=== PATIENT | female | born 1990 | race Caucasian/White ===

== ENCOUNTER 2017-06-29 20:38 | Emergency (ER) | payer MEDICAID ==
[~2017-06-29] VITALS: Ht 165.1 cm; Wt 87.5 kg
[2017-06-29 20:41] VITALS: BP_SYST 128
--- NOTE | 2017-06-29 21:45 | NUR ---
Patient to ER bed 6 to gown for evaluation. Side rails up. Report given to ZACHARY OBRIEN.
--- NOTE | 2017-06-29 21:50 | NUR ---
Patient arrived to ED a/o x 4 with c/o 8/10 epigastric pain x 1 day. Patient states that pain increases when she eats. Mild inspiratory wheezes noted. Skin warm and dry. Denies N/V/D. Will continue to monitor.
--- NOTE | 2017-06-29 21:59 | NUR ---
ER at bedside examining patient.
[2017-06-29] MEDS ORDERED: IPRATROPIUM/ALBUTEROL SULFATE 3 ML AMPUL.NEB INH ONE (22:30)
[2017-06-29] MEDS ORDERED: methylPREDNISolone SOD SUCC/PF 62.5 MG/ML VIAL IM ONE (22:30)
[2017-06-29 23:00] VITALS: BP_SYST 125
--- NOTE | 2017-06-29 23:00 | NUR ---
Patient given written and verbal discharge instructions and verbalizes understanding. ER MD discussed with patient the results and treatment provided. Patient in stable condition. ID arm band removed. Rx of Prednisone and Atrovent given. Patient educated on pain management and to follow up with PMD. Pain Scale 2/10 tolerable for patient. Opportunity for questions provided and answered. Medication side effect fact sheet provided.
== END 2017-06-29 23:00 | disposition home or self-care (01) ==
LOC: SED 20:38
DX: J45.901 Unspecified asthma with (acute) exacerbation (principal)
CPT/HCPCS: 93005; 94640; 96372; 99283; J2930

== ENCOUNTER 2017-07-06 08:53 | Emergency (ER) | payer MEDICAID ==
[~2017-07-06] VITALS: Ht 165.1 cm; Wt 87.5 kg
[2017-07-06 09:45] VITALS: BP_SYST 120
--- NOTE | 2017-07-06 10:27 | NUR ---
Ambulatory to bed 4
--- NOTE | 2017-07-06 10:58 | NUR ---
Dr. Huber at bedside for evaluation
[2017-07-06] MEDS ORDERED: IPRATROPIUM/ALBUTEROL SULFATE 3 ML AMPUL.NEB INH ONE (11:15)
[2017-07-06 11:20] VITALS: BP_SYST 128
--- NOTE | 2017-07-06 11:20 | NUR ---
Patient given written and verbal discharge instructions and verbalizes understanding. ER MD discussed with patient the results and treatment provided. Patient in stable condition. ID arm band removed. Rx of Amoxicillin and Motrin given. Patient educated on pain management and to follow up with PMD. Pain Scale 3/10. Opportunity for questions provided and answered. Medication side effect fact sheet provided.
== END 2017-07-06 11:20 | disposition home or self-care (01) ==
LOC: SED 08:53
DX: H66.92 Otitis media, unspecified, left ear (principal); J45.909 Unspecified asthma, uncomplicated
CPT/HCPCS: 99283

== ENCOUNTER 2019-04-11 08:13 | Emergency (ER) | payer MEDICAID ==
[2019-04-11] MEDS ORDERED: methylPREDNISolone SOD SUCC/PF 62.5 MG/ML VIAL ONE (09:08)
== END 2019-04-11 10:17 | disposition home or self-care (01) ==
LOC: SED 08:13
DX: J45.901 Unspecified asthma with (acute) exacerbation (principal)
CPT/HCPCS: 94640; 96372; 99284; J2930

== ENCOUNTER 2019-04-15 22:38 | Emergency (ER) | payer MEDICAID ==
[~2019-04-15] VITALS: Ht 165.1 cm; Wt 88.5 kg
[2019-04-15 22:46] VITALS: BP_SYST 131
--- NOTE | 2019-04-15 23:03 | NUR ---
Patient left without being seen. No further treatment provided. ER MD aware
--- NOTE | 2019-04-15 23:03 | NUR ---
Called in x 3, no answer
== END 2019-04-15 23:03 | disposition left against medical advice (07) ==
LOC: SED 22:38
DX: R06.02 Shortness of breath (principal); Z53.21 Procedure and treatment not carried out due to patient leaving prior to being seen by health care provider
CPT/HCPCS: 36415; 86710

== ENCOUNTER 2019-05-23 08:22 | Emergency (ER) | payer MEDICAID ==
[~2019-05-23] VITALS: Ht 165.1 cm; Wt 86.2 kg
[2019-05-23 08:22] VITALS: BP_SYST 121
[2019-05-23] MEDS ORDERED: methylPREDNISolone SOD SUCC/PF 62.5 MG/ML VIAL IM ONE (09:45)
[2019-05-23] MEDS ORDERED: IPRATROPIUM/ALBUTEROL SULFATE 3 ML AMPUL.NEB (DUONEB) INH ONE (09:45)
[2019-05-23 10:17] VITALS: BP_SYST 127
== END 2019-05-23 10:16 | disposition home or self-care (01) ==
LOC: SED 08:22
DX: J45.901 Unspecified asthma with (acute) exacerbation (principal); J10.1 Influenza due to other identified influenza virus with other respiratory manifestations
CPT/HCPCS: 86710; 94640; 96372; 99283; J2930; J7620; 36415

== ENCOUNTER 2020-05-11 00:08 | Emergency (ER) | payer MEDICAID, SELFPAY ==
[~2020-05-11] VITALS: Ht 165.1 cm; Wt 86.2 kg
[2020-05-11 00:15] VITALS: BP_SYST 146
--- NOTE | 2020-05-11 00:15 | NUR ---
Patient triaged in the tent and placed in the covid tent. VSS and patient appears in no acute distress at this time. awaiting available bed, and MD notified of need for MSE.
--- NOTE | 2020-05-11 01:01 | NUR ---
MATTHEW Hinds examining patient.
[2020-05-11] MEDS: IPRATROPIUM BROM 0.5 MG/2.5 ML VIAL.NEB (ATROVENT) INH ONE (02:25)
[2020-05-11] MEDS: LevALBUTEROL HCL 1.25 MG/0.5 ML *CONC.* VIAL.NEB (XOPENEX CONC.) INH ONE (02:26)
--- NOTE | 2020-05-11 02:26 | NUR ---
Patient given written and verbal discharge instructions and verbalizes understanding. ER MD discussed with patient the results and treatment provided. Patient in stable condition. ID arm band removed. Rx of Flovent HFA given. Patient educated on pain management and to follow up with PMD. Pain Scale 0/10. Opportunity for questions provided and answered. Medication side effect fact sheet provided.
[2020-05-11 02:29] VITALS: BP_SYST 139
== END 2020-05-11 02:26 | disposition home or self-care (01) ==
LOC: SED 00:08
DX: U07.1 COVID-19 (principal); R06.02 Shortness of breath; J45.909 Unspecified asthma, uncomplicated
CPT/HCPCS: 71045; 94640; 99283; J7612

== ENCOUNTER 2020-05-13 17:49 | Emergency (ER) | payer MEDICAID, SELFPAY ==
[~2020-05-13] VITALS: Ht 165.1 cm; Wt 86.2 kg
--- NOTE | 2020-05-13 17:56 | NUR ---
Patient triaged and placed in waiting room. VSS and patient appears in no acute distress at this time. Accompanied by self , awaiting available bed, and MD notified of need for MSE.
[2020-05-13 18:00] VITALS: BP_SYST 129
--- NOTE | 2020-05-13 18:00 | NUR ---
Pt brought by self, A&Ox4, pt presents to ER with chest pressure/palpitations x 5 days, skin pink and warm, cap refill <3, respirations even and unlabored, will cont to monitor.
--- NOTE | 2020-05-13 18:10 | NUR ---
Dr Hazel evaluating patient in the tent
--- NOTE | 2020-05-13 18:24 | NUR ---
Pt A&Ox4, VSS, respirations even and unlabored,will cont to monitor.
--- NOTE | 2020-05-13 18:31 | NUR ---
Report given to Kait SHARMA
[2020-05-13 18:48] LABS: BASOPHILS % (AUTO) 0.3 % (0.0-2.0); EOSINOPHILS # (AUTO) 0.1 K/uL (0.0-0.4); EOSINOPHILS % (AUTO) 0.6 % (0.0-4.0); HEMATOCRIT 37.2 % (36-48); HEMOGLOBIN 12.6 g/dL (12.0-16.0); LYMPHOCYTES # (AUTO) 1.5 K/uL (1.0-5.5); LYMPHOCYTES % (AUTO) 16.6 % (20.5-51.5); MEAN CORPUSCULAR HEMOGLOBIN 29 pg (27-31); MEAN CORPUSCULAR HGB CONC 34 % (32-36); MEAN CORPUSCULAR VOLUME 85 fL (79.0-98.0); MONOCYTES # (AUTO) 0.4 K/uL (0.0-1.0); MONOCYTES % (AUTO) 4.9 % (1.7-9.3); NEUTROPHILS # (AUTO) 7.1 K/uL (1.8-7.7); NEUTROPHILS % (AUTO) 77.6 % (40.0-70.0); PLATELET COUNT (AUTO) 329 K/uL (130-430); RED BLOOD CELL COUNT(AUTO) 4.39 MIL/uL (4.2-6.2); WHITE BLOOD COUNT (AUTO) 9.1 K/uL (4.8-10.8)
[2020-05-13 19:09] LABS: CALCIUM 8.9 mg/dL (8.4-11.0); CREATININE 0.67 mg/dL (0.55-1.30); POTASSIUM 3.9 mmol/L (3.5-5.1)
[2020-05-13 19:23] LABS: ALBUMIN 4.1 g/dL (3.4-4.8); FREE T4 (FREE THYROXINE) 1.3 ng/dl (0.8-1.5); THYROID STIMULATING HORMONE 1.34 uIu/mL (0.36-3.74); TOTAL BILIRUBIN 0.4 mg/dL (0.0-1.0)
[2020-05-13 20:17] VITALS: BP_SYST 129
--- NOTE | 2020-05-13 20:17 | NUR ---
Patient given written and verbal discharge instructions and verbalizes understanding. DR. ISAAK CASTRO MD discussed with patient the results and treatment provided. Patient in stable condition. ID arm band removed. Rx of ATARAX given. Patient educated on pain management and to follow up with PMD. Pain Scale 0/10. Opportunity for questions provided and answered. Medication side effect fact sheet provided.
== END 2020-05-13 20:17 | disposition home or self-care (01) ==
LOC: SED 17:49
DX: F41.9 Anxiety disorder, unspecified (principal); R00.2 Palpitations
CPT/HCPCS: 36415; 71045; 80053; 83735-TC; 84439; 84443-TC; 84479; 84484; 85025; 93005; 99285

== ENCOUNTER 2020-06-20 21:32 | Emergency (ER) | payer MEDICAID, SELFPAY ==
[~2020-06-20] VITALS: Ht 165.1 cm; Wt 86.2 kg
[2020-06-20 21:40] VITALS: BP_SYST 147
--- NOTE | 2020-06-20 21:45 | NUR ---
PT TO [facility] FOR EVALUATION
--- NOTE | 2020-06-20 22:31 | NUR ---
Patient AAO x 4, c/o left arm pain radiating to her back x 1 week. Patient took 2 baby aspirin at 1800 hrs w/o elief of symptoms. Patient denied any trauma/injury. She reported she was Covid positive on 05/04/2020 however tested negative on May. Patient able to move left arm w/o difficulty. Patient ambulatory with stable gait. No other remarkable symptoms noted.
--- NOTE | 2020-06-20 22:45 | NUR ---
DR. HEATH AT BEDSIDE FOR EVALUATION
[2020-06-21 00:23] LABS: BASOPHILS # (AUTO) 0.1 K/uL (0.0-0.2); BASOPHILS % (AUTO) 0.6 % (0.0-2.0); EOSINOPHILS # (AUTO) 0.1 K/uL (0.0-0.4); HEMATOCRIT 37.8 % (36-48); HEMOGLOBIN 12.4 g/dL (12.0-16.0); LYMPHOCYTES # (AUTO) 2.2 K/uL (1.0-5.5); LYMPHOCYTES % (AUTO) 25.3 % (20.5-51.5); MEAN CORPUSCULAR HEMOGLOBIN 28 pg (27-31); MEAN CORPUSCULAR HGB CONC 33 % (32-36); MEAN CORPUSCULAR VOLUME 85 fL (79.0-98.0); MONOCYTES # (AUTO) 0.5 K/uL (0.0-1.0); MONOCYTES % (AUTO) 5.3 % (1.7-9.3); NEUTROPHILS % (AUTO) 67.8 % (40.0-70.0); PLATELET COUNT (AUTO) 281 K/uL (130-430); RED BLOOD CELL COUNT(AUTO) 4.43 MIL/uL (4.2-6.2); RED CELL DISTRIBUTION WIDTH 13.3 % (9.0-15.0); WHITE BLOOD COUNT (AUTO) 8.9 K/uL (4.8-10.8)
[2020-06-21 00:25] LABS: ALBUMIN 4.1 g/dL (3.4-4.8); CREATININE 0.65 mg/dL (0.55-1.30); POTASSIUM 3.7 mmol/L (3.5-5.1); TOTAL BILIRUBIN 0.2 mg/dL (0.0-1.0)
[2020-06-21 00:33] LABS: PROTHROMBIN TIME 9.9 SECS (9.5-12.5)
[2020-06-21] MEDS ORDERED: IBUP-1971 PO (01:18)
[2020-06-21 01:24] VITALS: BP_SYST 147
--- NOTE | 2020-06-21 01:24 | NUR ---
Patient given written and verbal discharge instructions and verbalizes understanding. DR. KUMAR CASTRO MD discussed with patient the results and treatment provided. Patient in stable condition. ID arm band removed. Rx SENT.. Patient educated on pain management and to follow up with PMD. Pain Scale 0/10. Opportunity for questions provided and answered. Medication side effect fact sheet provided.
== END 2020-06-21 01:24 | disposition home or self-care (01) ==
LOC: SED 21:32
DX: M25.512 Pain in left shoulder (principal); R07.89 Other chest pain; M25.522 Pain in left elbow; J45.909 Unspecified asthma, uncomplicated; Z79.899 Other long term (current) drug therapy
CPT/HCPCS: 36415; 73030; 80053; 85025; 85379; 85610-TC; 85730-TC; 93005; 99285